=== PATIENT | female | born 1975 | race Caucasian/White ===

== ENCOUNTER → 2020-08-07 15:04 | Outpatient (CLI) | payer OTHER, SELFPAY ==
--- NOTE | 2020-08-07 15:08 | DI.RAD.S_ITS ---
PROCEDURE: XR CHEST 2V INDICATIONS: coughing x9days TECHNIQUE: 2 views of the chest were acquired. COMPARISON: None. FINDINGS: Surgical changes and devices: None. Lungs and pleura: Lungs are clear. No pleural effusions or pneumothorax. Mediastinum: Mediastinal contours are normal. Heart size is normal. Bones and chest wall: No suspicious bony abnormalities. Soft tissues appear unremarkable. IMPRESSION: No evidence acute pulmonary process. Dictated by: Balaji Caldera M.D. on 08/07/2020 at 15:19 Approved by: Balaji Caldera M.D. on 08/07/2020 at 15:20
== END ==
PROVIDERS: PCP Family Medicine; Referring Provider Physician Assistant; Visit Provider Physician Assistant
DX: R05 Cough (principal); R53.83 Other fatigue
CPT/HCPCS: 71046